=== PATIENT | male | born 1950 | race Two or more races ===

== ENCOUNTER 2024-07-12 12:54 | Inpatient (IN) | payer MEDICARE, MEDICAID ==
[~2024-07-12] VITALS: Ht 152.4 cm; Wt 86.2 kg
[2024-07-12] MEDS ORDERED: LOSA100T33 PO (17:34)
[2024-07-12] MEDS ORDERED: GLIP10TA17 PO (17:34)
[2024-07-12] MEDS ORDERED: AMLO10TA80 PO (17:34)
[2024-07-12] MEDS ORDERED: FURO40TA5 PO (17:34)
[2024-07-12] MEDS ORDERED: GABA-529 PO (17:34)
[2024-07-12] MEDS ORDERED: METO25TA6 PO (17:34)
[2024-07-12] MEDS ORDERED: TAMS-54 PO (17:34)
[2024-07-12] MEDS ORDERED: ATOR40TA70 PO (17:34)
[2024-07-12] MEDS ORDERED: APIX2.5T PO (17:34)
[2024-07-12] MEDS ORDERED: ENOXAPARIN 40MG/0.4ML SYR SUBCUT SCH (17:45)
[2024-07-12] MEDS ORDERED: ZOLPIDEM TARTRATE 5MG TABLET PO PRN (17:45)
[2024-07-12] MEDS ORDERED: DEXTROSE 50% WATER 50ML SYRINGE IV PRN (17:45)
[2024-07-12] MEDS ORDERED: ONDANSETRON HCL 4MG/2ML INJ IV PRN (17:45)
[2024-07-12 18:00] VITALS: BP 122/69; PULSE 75; RESP 18; TEMP 36.1
[2024-07-12] MEDS: SODIUM CHLORIDE 0.9% 1,000 ML IV SCH (19:54)
[2024-07-12 20:00] VITALS: BP 104/40; PULSE 73; RESP 21; TEMP 35.6; O2SAT 100
[2024-07-12 20:18] LABS: BASOPHILS % 0.9 % (0.0-2.0); DIFFERENTIAL COMMENT 0; EOSINOPHILS % 4.3 % (0.0-5.0); HEMATOCRIT. 33.2 % (42.0-52.0); HEMOGLOBIN. 10.6 g/dL (14.0-18.0); LYMPHOCYTES % 21.2 % (20.0-50.0); MEAN CORPUSCULAR HEMOGLOBIN 25.1 pg (28.0-32.0); MEAN CORPUSCULAR VOLUME 78.6 fL (80.0-94.0); MEAN PLATELET VOLUME 8.9 fl (7.4-10.4); NEUTROPHILS % 65.6 % (40.0-76.0); PLATELET 225 x1000/uL (130-400); RED BLOOD CELL COUNT 4.23 mill/uL (4.7-6.1); RED CELL DISTRIBUTION WIDTH 16.6 % (11.6-14.6)
[2024-07-12 20:22] LABS: CREATININE 1.3 mg/dL (0.6-1.3)
[2024-07-12] MEDS: INSULIN LISPRO 100 UNITS/ML SUBCUT SCH (21:00)
[2024-07-12] MEDS: GLIPIZIDE 10MG TABLET PO SCH (21:21)
[2024-07-12] MEDS: ATORVASTATIN CALCIUM 40MG TABLET PO SCH (21:22)
[2024-07-12] MEDS: BLOOD SUGAR DIAGNOSTIC STRIP TEST SCH (21:29)
[2024-07-12] MEDS: APIXABAN 2.5 MG TABLET PO SCH (23:54)
[2024-07-13] VITALS (7 sets, daily range): BP systolic 105–144; BP diastolic 45–72; PULSE 70–80; RESP 16–21; TEMP 35.7–36.8; O2SAT 99–100
[2024-07-13 08:32] LABS: BASOPHILS % 1.1 % (0.0-2.0); DIFFERENTIAL COMMENT 0; EOSINOPHILS % 4.7 % (0.0-5.0); HEMATOCRIT. 31.6 % (42.0-52.0); HEMOGLOBIN. 10.4 g/dL (14.0-18.0); MEAN CORPUSCULAR HEMOGLOBIN 25.4 pg (28.0-32.0); MEAN CORPUSCULAR HGB CONC 32.9 g/dL (31.0-37.0); MEAN CORPUSCULAR VOLUME 77.3 fL (80.0-94.0); MEAN PLATELET VOLUME 9.2 fl (7.4-10.4); MONOCYTES % 7.6 % (2.0-8.0); NEUTROPHILS % 68.6 % (40.0-76.0); PLATELET 190 x1000/uL (130-400); RED BLOOD CELL COUNT 4.08 mill/uL (4.7-6.1); RED CELL DISTRIBUTION WIDTH 16.4 % (11.6-14.6); WHITE BLOOD COUNT 7.6 x1000/uL (4.5-11.0)
[2024-07-13 08:54] LABS: CHLORIDE 106 mEq/L (98-107); POTASSIUM 4.6 mEq/L (3.5-5.1); SODIUM 141 mEq/L (136-145)
[2024-07-13 08:55] LABS: CARBON DIOXIDE 26 mEq/L (21-32)
[2024-07-13 08:56] LABS: CALCIUM 9.6 mg/dL (8.7-10.4)
[2024-07-13 09:00] LABS: CREATININE 1.1 mg/dL (0.6-1.3); GLUCOSE 159 mg/dL (70-105)
[2024-07-13] MEDS: PANTOPRAZOLE SODIUM 40 MG/VIAL IV SCH (09:00)
[2024-07-13 09:01] LABS: UREA NITROGEN BLOOD 35 mg/dL (9-23)
[2024-07-13] MEDS: GABAPENTIN 100MG CAPSULE PO SCH (09:03)
[2024-07-13] MEDS: AMLODIPINE 10MG TABLET PO SCH (09:03)
[2024-07-13] MEDS: METOPROLOL TARTRATE 25MG TABLET PO SCH (09:04)
[2024-07-13] MEDS: TAMSULOSIN HCL 0.4MG SR CAPSULE PO SCH (09:06)
[2024-07-13] MEDS: FUROSEMIDE 40MG TABLET PO SCH (09:07)
[2024-07-13] MEDS: LOSARTAN 100 MG TABLET PO SCH (09:16)
[2024-07-13] MEDS: HYDROCODONE/ACETAMINOPHEN 5/325MG TABLET PO PRN (13:30)
[2024-07-13] MEDS ORDERED: INSU100I28 SQ (14:18)
[2024-07-13] MEDS ORDERED: CLOB60CR4 TP (14:18)
[2024-07-13] MEDS ORDERED: METF-416 MT (14:18)
[2024-07-13] MEDS ORDERED: MELA3TAB40 MT (14:22)
[2024-07-13] MEDS ORDERED: FERR325T6 MT (14:22)
[2024-07-13] MEDS ORDERED: DOCU-422 MT (14:22)
[2024-07-13] MEDS ORDERED: SENN-362 MT (14:22)
[2024-07-13] MEDS ORDERED: MULT-1146 MT (14:22)
[2024-07-14] VITALS: BP 102/60; PULSE 100; RESP 18; TEMP 36.1; O2SAT 95
[2024-07-14 06:10] LABS: HEMATOCRIT. 31.4 % (42.0-52.0); HEMOGLOBIN. 10.2 g/dL (14.0-18.0); MEAN CORPUSCULAR HEMOGLOBIN 25.4 pg (28.0-32.0); MEAN CORPUSCULAR HGB CONC 32.6 g/dL (31.0-37.0); PLATELET 191 x1000/uL (130-400); RED BLOOD CELL COUNT 4.02 mill/uL (4.7-6.1); RED CELL DISTRIBUTION WIDTH 16.6 % (11.6-14.6)
[2024-07-14 06:20] LABS: POTASSIUM 4.6 mEq/L (3.5-5.1)
[2024-07-14 06:21] LABS: CALCIUM 8.6 mg/dL (8.7-10.4)
[2024-07-14 07:03] LABS: DIFFERENTIAL COMMENT 1
[2024-07-14 08:00] VITALS: BP 87/52; PULSE 85; RESP 19; TEMP 36.4; O2SAT 97
[2024-07-14 12:00] VITALS: BP 108/52; PULSE 65; RESP 16; TEMP 35.6; O2SAT 98
[2024-07-14] MEDS ORDERED: CEFEPIME 1GM IN DEXT 5% 50ML IV SCH (13:30)
[2024-07-14 16:00] VITALS: BP 113/52; PULSE 75; RESP 18; TEMP 36.3; O2SAT 98
[2024-07-14 16:04] LABS: MICROCYTOSIS 1+; PLATELET ESTIMATE NORMAL
[2024-07-14 16:05] LABS: ANISOCYTOSIS 1+
[2024-07-14] MEDS ORDERED: NALOXONE HCL 0.4MG/ML VIAL IV PRN (17:00)
[2024-07-14] MEDS: CEFEPIME 1GM/50ML 50 ML IV SCH (17:32)
[2024-07-14 20:00] VITALS: BP 110/60; PULSE 120; RESP 19; TEMP 37.2; O2SAT 99
[2024-07-14] MEDS: ACETAMINOPHEN 325MG TABLET PO PRN (20:11)
[2024-07-14] MEDS: DOCUSATE SODIUM 100MG CAPSULE PO SCH (21:29)
[2024-07-15] VITALS (90 sets, daily range): BP systolic 64–149; BP diastolic 38–124; PULSE 77–112; RESP 9–27; TEMP 36.8–37.2; O2SAT 63–100
[2024-07-15] MEDS ORDERED: VASOPRESSIN 20 UNIT in SODIUM CHLORIDE 0.9% 99 ML IV PRN (01:00)
[2024-07-15] MEDS ORDERED: PHENYLEPHRINE 100 MG in DEXT 5% WATER 240 ML IV PRN (01:00)
[2024-07-15] MEDS: NOREPINEPHRINE 8MG/250ML PMX 250 ML IV PRN (01:58)
[2024-07-15 02:13] LABS: CLARITY URINE TURBID (CLEAR); COLOR URINE YELLOW (YELLOW); GLUCOSE URINE NEGATIVE (NEGATIVE); KETONES URINE NEGATIVE (NEGATIVE); LEUKOCYTE ESTERASE URINE 3+ (NEGATIVE); NITRITE URINE NEGATIVE (NEGATIVE); OCCULT BLOOD URINE 3+ (NEGATIVE); PROTEIN URINE 3+ (NEGATIVE); SPECIFIC GRAVITY URINE 1.012 (1.005-1.030); UROBILINOGEN URINE 0.2 E.U./dL (0.2-1.0)
[2024-07-15 03:09] LABS: RBC URINE 15-25 /hpf (0-2); WBC URINE TNTC /hpf (0-2)
[2024-07-15 03:10] LABS: BACTERIA URINE 4+; SQUAMOUS EPITHELIAL CELL URINE FEW /lpf (RARE/1+)
[2024-07-15 03:12] LABS: CHLORIDE 106 mEq/L (98-107)
[2024-07-15 03:13] LABS: CARBON DIOXIDE 20 mEq/L (21-32); POTASSIUM 4.4 mEq/L (3.5-5.1); SODIUM 137 mEq/L (136-145)
[2024-07-15 03:14] LABS: CALCIUM 8.2 mg/dL (8.7-10.4)
[2024-07-15 03:16] LABS: HEMATOCRIT. 29.7 % (42.0-52.0); HEMOGLOBIN. 9.6 g/dL (14.0-18.0); MEAN CORPUSCULAR HEMOGLOBIN 25.2 pg (28.0-32.0); MEAN CORPUSCULAR HGB CONC 32.4 g/dL (31.0-37.0); MEAN CORPUSCULAR VOLUME 77.7 fL (80.0-94.0); MEAN PLATELET VOLUME 9.4 fl (7.4-10.4); PLATELET 168 x1000/uL (130-400); RED BLOOD CELL COUNT 3.83 mill/uL (4.7-6.1); RED CELL DISTRIBUTION WIDTH 17.3 % (11.6-14.6); WHITE BLOOD COUNT 17.4 x1000/uL (4.5-11.0)
[2024-07-15 03:18] LABS: GLUCOSE 231 mg/dL (70-105)
[2024-07-15 03:19] LABS: UREA NITROGEN BLOOD 51 mg/dL (9-23)
[2024-07-15 03:21] LABS: PHOSPHORUS 4.2 mg/dL (2.5-4.9)
[2024-07-15 03:41] LABS: DIFFERENTIAL COMMENT 1
[2024-07-15 03:50] LABS: CREATININE 4.1 mg/dL (0.6-1.3)
[2024-07-15] MEDS: GLIPIZIDE 10MG TABLET PO SCH (08:25)
[2024-07-15 09:44] LABS: HEMATOCRIT. 31.1 % (42.0-52.0); HEMOGLOBIN. 10.1 g/dL (14.0-18.0); MEAN CORPUSCULAR HEMOGLOBIN 25.5 pg (28.0-32.0); MEAN CORPUSCULAR HGB CONC 32.6 g/dL (31.0-37.0); MEAN CORPUSCULAR VOLUME 78.3 fL (80.0-94.0); MEAN PLATELET VOLUME 9.4 fl (7.4-10.4); PLATELET 169 x1000/uL (130-400); RED BLOOD CELL COUNT 3.97 mill/uL (4.7-6.1); RED CELL DISTRIBUTION WIDTH 17.2 % (11.6-14.6); WHITE BLOOD COUNT 15.2 x1000/uL (4.5-11.0)
[2024-07-15 09:48] LABS: DIFFERENTIAL COMMENT 1
[2024-07-15 10:04] LABS: CALCIUM 8.4 mg/dL (8.7-10.4); POTASSIUM 4.5 mEq/L (3.5-5.1)
[2024-07-15 10:10] LABS: CREATININE 4.4 mg/dL (0.6-1.3)
[2024-07-15 11:01] LABS: ANISOCYTOSIS 1+; MICROCYTOSIS 1+; PLATELET ESTIMATE NORMAL
[2024-07-15 11:22] LABS: ANISOCYTOSIS 1+; PLATELET ESTIMATE NORMAL
[2024-07-15 11:23] LABS: MICROCYTOSIS 1+
[2024-07-15] MEDS: MIDODRINE HCL 5MG TABLET PO SCH (23:15)
[2024-07-16] VITALS (68 sets, daily range): BP systolic 87–145; BP diastolic 36–96; PULSE 85–106; RESP 8–26; TEMP 36.4–37; O2SAT 90–100
[2024-07-16] MEDS: CEFEPIME 2GM/50ML DUPLEX 50 ML IV SCH (06:03)
[2024-07-16 07:23] LABS: ALBUMIN 2.9 g/dL (3.2-4.8); PREALBUMIN 7.8 mg/dl (10.0-40.0)
[2024-07-16 09:39] LABS: BASOPHILS % 0.4 % (0.0-2.0); DIFFERENTIAL COMMENT 0; EOSINOPHILS % 1.6 % (0.0-5.0); HEMOGLOBIN. 8.9 g/dL (14.0-18.0); MEAN CORPUSCULAR HEMOGLOBIN 25.3 pg (28.0-32.0); MEAN CORPUSCULAR VOLUME 79.1 fL (80.0-94.0); MEAN PLATELET VOLUME 9.8 fl (7.4-10.4); MONOCYTES % 9.5 % (2.0-8.0); NEUTROPHILS % 80.5 % (40.0-76.0); PLATELET 121 x1000/uL (130-400); RED BLOOD CELL COUNT 3.53 mill/uL (4.7-6.1); RED CELL DISTRIBUTION WIDTH 17.6 % (11.6-14.6); WHITE BLOOD COUNT 8.9 x1000/uL (4.5-11.0)
[2024-07-16 09:51] LABS: POTASSIUM 4.5 mEq/L (3.5-5.1)
[2024-07-16 09:53] LABS: CALCIUM 7.8 mg/dL (8.7-10.4)
[2024-07-16 10:15] LABS: CREATININE 5.2 mg/dL (0.6-1.3)
[2024-07-16] MEDS: PANTOPRAZOLE 80 MG in SODIUM CHLORIDE 0.9% 100 ML IV SCH (14:51)
[2024-07-16 15:36] LABS: HEMATOCRIT 27.7 % (42.0-52.0); HEMOGLOBIN 9.1 g/dL (14.0-18.0)
[2024-07-16 16:32] LABS: CLARITY URINE CLOUDY (CLEAR); COLOR URINE YELLOW (YELLOW); GLUCOSE URINE TRACE (NEGATIVE); KETONES URINE NEGATIVE (NEGATIVE); LEUKOCYTE ESTERASE URINE 3+ (NEGATIVE); NITRITE URINE NEGATIVE (NEGATIVE); OCCULT BLOOD URINE 2+ (NEGATIVE); PH URINE 5.5 (4.5-8.0); PROTEIN URINE 2+ (NEGATIVE); SPECIFIC GRAVITY URINE 1.011 (1.005-1.030); UROBILINOGEN URINE 0.2 E.U./dL (0.2-1.0)
[2024-07-16 16:50] LABS: BACTERIA URINE TRACE; SQUAMOUS EPITHELIAL CELL URINE FEW /lpf (RARE/1+); WBC URINE 50-100 /hpf (0-2)
[2024-07-16] MEDS ORDERED: MEROPENEM 500MG/50ML 50 ML IV SCH ×2 (17:00)
[2024-07-16 19:03] LABS: HEMATOCRIT 29.2 % (42.0-52.0); HEMOGLOBIN 9.3 g/dL (14.0-18.0)
[2024-07-16] MEDS: MEROPENEM 500MG/50ML 50 ML IV SCH (19:08)
[2024-07-17] VITALS (36 sets, daily range): BP systolic 117–150; BP diastolic 53–98; PULSE 82–100; RESP 12–22; TEMP 36.6–37.4; O2SAT 94–100
[2024-07-17] MEDS: BLOOD SUGAR DIAGNOSTIC STRIP TEST SCH
[2024-07-17] MEDS: INSULIN LISPRO 100 UNITS/ML SUBCUT SCH (00:39)
[2024-07-17 02:10] LABS: HEMATOCRIT 25.8 % (42.0-52.0); HEMOGLOBIN 8.4 g/dL (14.0-18.0)
[2024-07-17 06:10] LABS: CARBON DIOXIDE 19 mEq/L (21-32); CHLORIDE 112 mEq/L (98-107); POTASSIUM 4.2 mEq/L (3.5-5.1); SODIUM 140 mEq/L (136-145)
[2024-07-17 06:11] LABS: CALCIUM 8.1 mg/dL (8.7-10.4)
[2024-07-17 06:15] LABS: CREATININE 4.7 mg/dL (0.6-1.3); IRON 14 ug/dL (65-175)
[2024-07-17 06:16] LABS: GLUCOSE 181 mg/dL (70-105); UREA NITROGEN BLOOD 55 mg/dL (9-23)
[2024-07-17 06:18] LABS: TOTAL IRON BINDING CAPACITY 443 ug/dl (250-425)
[2024-07-17 06:22] LABS: FERRITIN 153 ng/mL (22-322); FOLIC ACID (FOLATE) SERUM 11.42 ng/mL (>5.38); VITAMIN B12 SERUM 402 pg/mL (211-911)
[2024-07-17 10:42] LABS: WHITE BLOOD COUNT 6.8 x1000/uL (4.5-11.0)
[2024-07-17 10:43] LABS: HEMATOCRIT 25.3 % (42.0-52.0); HEMOGLOBIN 8.5 g/dL (14.0-18.0); MEAN CORPUSCULAR HEMOGLOBIN 26.1 pg (28.0-32.0); MEAN CORPUSCULAR HGB CONC 33.7 g/dL (31.0-37.0); MEAN CORPUSCULAR VOLUME 77.6 fL (80.0-94.0); PLATELET 130 x1000/uL (130-400); RED BLOOD CELL COUNT 3.27 mill/uL (4.7-6.1)
[2024-07-17] MEDS: CITRIC ACID/SODIUM CITRATE SOLN 30ML UDC PO SCH (12:04)
[2024-07-17] MEDS: MAGNESIUM 2 G PREMIX 50 ML IV NR (12:04)
[2024-07-17 13:14] LABS: HEMATOCRIT 26.8 % (42.0-52.0); HEMOGLOBIN 8.9 g/dL (14.0-18.0)
[2024-07-17] MEDS: FERROUS SULFATE 325MG TABLET PO SCH (13:15)
[2024-07-17] MEDS: MEROPENEM 500 MG in SODIUM CHLORIDE 0.9% 100 ML IV SCH (17:41)
[2024-07-17] MEDS: SENNOSIDES/DOCUSATE SOD 8.6/50MG TABLET PO SCH (22:43)
[2024-07-17] MEDS: ASCORBIC ACID 250 MG TABLET PO SCH (22:43)
[2024-07-18] VITALS (27 sets, daily range): BP systolic 108–174; BP diastolic 57–133; PULSE 74–103; RESP 5–25; TEMP 36.6–37.2; O2SAT 86–99
[2024-07-18 01:40] LABS: HEMATOCRIT 26.8 % (42.0-52.0)
[2024-07-18 05:37] LABS: HEMOGLOBIN 8.2 g/dL (14.0-18.0)
[2024-07-18 06:07] LABS: CHLORIDE 112 mEq/L (98-107); SODIUM 140 mEq/L (136-145)
[2024-07-18 06:08] LABS: CARBON DIOXIDE 21 mEq/L (21-32)
[2024-07-18 06:13] LABS: CREATININE 3.6 mg/dL (0.6-1.3); GLUCOSE 244 mg/dL (70-105); UREA NITROGEN BLOOD 47 mg/dL (9-23)
[2024-07-18] MEDS ORDERED: NON FORMULARY MED XX SCH (11:00)
[2024-07-18] MEDS: IRON SUCROSE COMPLEX 100 MG/5 ML ML IV SCH (14:38)
[2024-07-18] MEDS: CLONIDINE 0.1MG TABLET PO PRN (20:08)
[2024-07-18 22:02] LABS: HEMATOCRIT 25.1 % (42.0-52.0); HEMOGLOBIN 8.2 g/dL (14.0-18.0)
[2024-07-19] VITALS: BP 146/53; PULSE 71; RESP 19; TEMP 36.5; O2SAT 95
[2024-07-19 04:00] VITALS: BP 166/81; PULSE 84; RESP 17; TEMP 36.6; O2SAT 96
[2024-07-19 06:30] LABS: POTASSIUM 3.7 mEq/L (3.5-5.1)
[2024-07-19 06:31] LABS: CALCIUM 8.4 mg/dL (8.7-10.4)
[2024-07-19 06:35] LABS: CREATININE 2.6 mg/dL (0.6-1.3)
[2024-07-19 06:39] LABS: HEMATOCRIT. 25.7 % (42.0-52.0); HEMOGLOBIN. 8.6 g/dL (14.0-18.0); MEAN CORPUSCULAR HEMOGLOBIN 25.7 pg (28.0-32.0); MEAN CORPUSCULAR HGB CONC 33.6 g/dL (31.0-37.0); MEAN CORPUSCULAR VOLUME 76.4 fL (80.0-94.0); MEAN PLATELET VOLUME 9.4 fl (7.4-10.4); PLATELET 158 x1000/uL (130-400); RED BLOOD CELL COUNT 3.37 mill/uL (4.7-6.1); RED CELL DISTRIBUTION WIDTH 16.8 % (11.6-14.6); WHITE BLOOD COUNT 4.9 x1000/uL (4.5-11.0)
[2024-07-19 07:16] LABS: DIFFERENTIAL COMMENT 1
[2024-07-19 08:00] VITALS: BP 147/60; PULSE 87; RESP 16; TEMP 36.7; O2SAT 96
[2024-07-19] MEDS: PANTOPRAZOLE 40MG DR TABLET PO SCH (10:01)
[2024-07-19 12:00] VITALS: BP 138/59; PULSE 85; RESP 15; TEMP 36.5; O2SAT 95
[2024-07-19 15:24] LABS: PLATELET ESTIMATE NORMAL
[2024-07-19 15:25] LABS: MICROCYTOSIS 1+
[2024-07-19 16:00] VITALS: BP 155/68; PULSE 94; RESP 18; TEMP 36.4; O2SAT 96
[2024-07-19 20:00] VITALS: BP 144/65; PULSE 99; RESP 18; TEMP 36.7; O2SAT 98
[2024-07-19] MEDS: MESALAMINE 1000MG SUPPOSITORY PR SCH (20:26)
[2024-07-20] VITALS: BP 127/56; PULSE 97; RESP 19; TEMP 36.8; O2SAT 97
[2024-07-20 04:00] VITALS: BP 134/58; PULSE 83; RESP 19; TEMP 36.9; O2SAT 96
[2024-07-20 08:00] VITALS: BP 128/61; PULSE 93; RESP 20; TEMP 36.9; O2SAT 96
[2024-07-20 12:00] VITALS: BP 137/58; PULSE 74; RESP 18; TEMP 36.4; O2SAT 97
[2024-07-20 16:00] VITALS: BP 127/54; PULSE 68; RESP 17; TEMP 36.6; O2SAT 99
[2024-07-20 20:00] VITALS: BP 143/57; PULSE 71; RESP 19; TEMP 36.7; O2SAT 98
[2024-07-20 20:42] LABS: DIFFERENTIAL COMMENT 1; HEMOGLOBIN. 7.5 g/dL (14.0-18.0); MEAN CORPUSCULAR HEMOGLOBIN 25.3 pg (28.0-32.0); MEAN CORPUSCULAR HGB CONC 32.5 g/dL (31.0-37.0); MEAN PLATELET VOLUME 8.8 fl (7.4-10.4); PLATELET 159 x1000/uL (130-400); RED BLOOD CELL COUNT 2.95 mill/uL (4.7-6.1); RED CELL DISTRIBUTION WIDTH 16.7 % (11.6-14.6); WHITE BLOOD COUNT 4.9 x1000/uL (4.5-11.0)
[2024-07-20 20:50] LABS: POTASSIUM 3.9 mEq/L (3.5-5.1)
[2024-07-20 20:52] LABS: CALCIUM 7.9 mg/dL (8.7-10.4)
[2024-07-20 21:01] LABS: MICROCYTOSIS 1+; PLATELET ESTIMATE NORMAL
[2024-07-21] VITALS: BP 149/57; PULSE 79; RESP 18; TEMP 36.9; O2SAT 98
[2024-07-21 04:00] VITALS: BP 156/58; PULSE 73; RESP 18; TEMP 36.6; O2SAT 100
[2024-07-21 07:33] LABS: POTASSIUM 3.7 mEq/L (3.5-5.1)
[2024-07-21 07:35] LABS: CALCIUM 8.1 mg/dL (8.7-10.4)
[2024-07-21 07:38] LABS: BASOPHILS % 0.5 % (0.0-2.0); DIFFERENTIAL COMMENT 0; EOSINOPHILS % 6.2 % (0.0-5.0); HEMATOCRIT. 23.6 % (42.0-52.0); HEMOGLOBIN. 7.7 g/dL (14.0-18.0); LYMPHOCYTES % 19.4 % (20.0-50.0); MEAN CORPUSCULAR HEMOGLOBIN 25.3 pg (28.0-32.0); MEAN CORPUSCULAR HGB CONC 32.8 g/dL (31.0-37.0); MEAN CORPUSCULAR VOLUME 77.1 fL (80.0-94.0); MEAN PLATELET VOLUME 8.8 fl (7.4-10.4); MONOCYTES % 13.1 % (2.0-8.0); NEUTROPHILS % 60.8 % (40.0-76.0); PLATELET 174 x1000/uL (130-400); RED BLOOD CELL COUNT 3.06 mill/uL (4.7-6.1); RED CELL DISTRIBUTION WIDTH 16.7 % (11.6-14.6); WHITE BLOOD COUNT 5.1 x1000/uL (4.5-11.0)
[2024-07-21 07:39] LABS: CREATININE 1.8 mg/dL (0.6-1.3)
[2024-07-21 08:00] VITALS: BP 149/60; PULSE 75; RESP 15; TEMP 36.1; O2SAT 95
[2024-07-21 12:00] VITALS: BP 155/66; PULSE 72; RESP 19; TEMP 36.5; O2SAT 97
[2024-07-21 16:00] VITALS: BP 150/57; PULSE 65; RESP 18; TEMP 36; O2SAT 96
[2024-07-21 20:00] VITALS: BP 146/60; PULSE 69; RESP 19; TEMP 36.7; O2SAT 97
[2024-07-22] VITALS: BP 145/55; PULSE 73; RESP 17; TEMP 36.6
[2024-07-22 04:00] VITALS: BP 132/64; PULSE 68; RESP 18; TEMP 36.9
[2024-07-22 08:00] VITALS: BP 159/59; PULSE 75; RESP 18; TEMP 36.6; O2SAT 95
[2024-07-22 12:00] VITALS: BP 169/64; PULSE 64; RESP 18; TEMP 36.8; O2SAT 98
[2024-07-22 13:20] LABS: BASOPHILS % 0.7 % (0.0-2.0); DIFFERENTIAL COMMENT 0; EOSINOPHILS % 6.7 % (0.0-5.0); HEMATOCRIT. 24.4 % (42.0-52.0); HEMOGLOBIN. 7.9 g/dL (14.0-18.0); LYMPHOCYTES % 20.9 % (20.0-50.0); MEAN CORPUSCULAR HEMOGLOBIN 25.1 pg (28.0-32.0); MEAN CORPUSCULAR HGB CONC 32.4 g/dL (31.0-37.0); MEAN CORPUSCULAR VOLUME 77.4 fL (80.0-94.0); MEAN PLATELET VOLUME 8.3 fl (7.4-10.4); MONOCYTES % 9.8 % (2.0-8.0); NEUTROPHILS % 61.9 % (40.0-76.0); PLATELET 192 x1000/uL (130-400); RED BLOOD CELL COUNT 3.15 mill/uL (4.7-6.1); RED CELL DISTRIBUTION WIDTH 16.5 % (11.6-14.6); WHITE BLOOD COUNT 4.8 x1000/uL (4.5-11.0)
[2024-07-22 16:00] VITALS: BP 149/57; PULSE 66; RESP 18; TEMP 36.8; O2SAT 100
[2024-07-22 17:53] VITALS: BP 130/69; PULSE 66; TEMP 97.6; O2SAT 96
== END 2024-07-22 18:00 | DRG 871 ==
LOC: 7EST 16:48 → CVICU 07-15 00:45 → 6WST 07-18 18:43
PROVIDERS: ADMIT Internal Medicine; ATTEND Internal Medicine
DX: A41.9 Sepsis, unspecified organism (principal); L89.153 Pressure ulcer of sacral region, stage 3; N17.0 Acute kidney failure with tubular necrosis; E86.0 Dehydration; E11.40 Type 2 diabetes mellitus with diabetic neuropathy, unspecified; N40.0 Benign prostatic hyperplasia without lower urinary tract symptoms; D50.9 Iron deficiency anemia, unspecified; E11.22 Type 2 diabetes mellitus with diabetic chronic kidney disease; E78.5 Hyperlipidemia, unspecified; E83.42 Hypomagnesemia; E87.70 Fluid overload, unspecified; I12.9 Hypertensive chronic kidney disease with stage 1 through stage 4 chronic kidney disease, or unspecified chronic kidney disease; K52.9 Noninfective gastroenteritis and colitis, unspecified; K59.00 Constipation, unspecified; N18.9 Chronic kidney disease, unspecified; E11.51 Type 2 diabetes mellitus with diabetic peripheral angiopathy without gangrene; N30.90 Cystitis, unspecified without hematuria; F32.A Depression, unspecified; F41.9 Anxiety disorder, unspecified; S70.311A Abrasion, right thigh, initial encounter; Z89.511 Acquired absence of right leg below knee; Z79.01 Long term (current) use of anticoagulants; Z89.612 Acquired absence of left leg above knee; X58.XXXA Exposure to other specified factors, initial encounter; Y93.89 Activity, other specified; Y92.89 Other specified places as the place of occurrence of the external cause; Y99.8 Other external cause status
CPT/HCPCS: 36415; 71045; 74176; 76705; 76770; 80048; 81003; 82040; 82270; 82607; 82728; 82746; 82962; 83036; 83540; 83550; 83735; 84100; 84134; 84145; 85014; 85018; 85025; 85027; 85044; 86850; 86900; 87077; 87186; 93970; A4606; J0692; J1815; J2185; J2470; J3475; J3490; J7030; J7050